=== PATIENT | male | born 1945 | race Caucasian/White ===

== ENCOUNTER 2017-08-31 20:12 | Emergency (ER) | payer OTHER ==
[~2017-08-31] VITALS: Ht 170.2 cm; Wt 98.9 kg
--- NOTE | 2017-08-31 20:20 | NUR ---
BIB FAMILY, C/O CHEST PAIN, NAD NOTED, VSS, RESP EVEN AND UNLABORED, PT WAS PUT ON MONITOR, WAITING FOR MD WIGGINS.
[2017-08-31] MEDS ORDERED: ASPIRIN 81 MG TAB.CHEW ONE (20:46)
[2017-08-31] MEDS ORDERED: DILTIAZEM HCL 25 MG IV ONE (20:46)
[2017-08-31] MEDS ORDERED: IV NS 0.9% 500 ML BAG IV ONE (21:00)
[2017-08-31] MEDS ORDERED: ASPIRIN 81 MG TAB.CHEW PO ONE (21:00)
[2017-08-31] MEDS ORDERED: DILTIAZEM HCL 25 MG IV IV ONE (21:00)
[2017-08-31 21:22] LABS: BASOPHILS # (AUTO) 0.1 /CMM (0.0-0.2); BASOPHILS % (AUTO) 0.4 % (0.0-2.0); EOSINOPHILS % (AUTO) 1.9 % (0.0-6.0); HEMATOCRIT 40 % (39-51); HEMOGLOBIN 13.5 g/dL (13.5-17.5); LYMPHOCYTES # (AUTO) 3.1 /CMM (0.8-4.8); MEAN CORPUSCULAR HGB CONC 34 g/dl (31.0-36.0); MEAN CORPUSCULAR VOLUME 87 fL (80-96); MONOCYTES # (AUTO) 0.9 /CMM (0.1-1.30); MONOCYTES % (AUTO) 6.2 % (2.0-12.0); NEUTROPHILS # (AUTO) 9.7 /CMM (1.8-8.9); NEUTROPHILS % (AUTO) 69.5 % (43.0-81.0); PLATELET COUNT (AUTO) 241 /CMM (150-450); RDW COEFFICIENT OF VARIATION 15.3 (11.5-15.0); RED BLOOD CELL COUNT(AUTO) 4.63 MIL/uL (4.5-6.0); WHITE BLOOD COUNT (AUTO) 13.9 K/uL (4.3-11.0)
[2017-08-31 21:44] LABS: ALBUMIN 3.3 g/dL (3.4-5.0); BILIRUBIN,DIRECT 0.1 mg/dL (0.0-0.2); BILIRUBIN,TOTAL 0.5 mg/dL (0.2-1.0); CALCIUM, SERUM 9.1 mg/dL (8.5-10.1); CREATININE 1.4 mg/dL (0.6-1.3); POTASSIUM 4.5 mmol/L (3.5-5.1)
[2017-08-31 21:48] LABS: TROPONIN I 0.017 ng/mL (0.00-0.056)
[2017-08-31 21:58] LABS: INR 0.86 (0.87-1.13)
[2017-08-31 22:50] VITALS: BP 149/87
--- NOTE | 2017-08-31 22:52 | NUR ---
Patient does not wish to proceed with medical care recommended by Dr. Fontana. Patient given information related to possible complications, up to and including , which could occur as a result of leaving the hospital at this time. Patient verbalizes understanding of risks involved due to leaving against medical advice. Patient has signed AMA form.
== END 2017-08-31 22:53 | disposition left against medical advice (07) ==
LOC: ER 20:14 → TELE1 22:12 → UNDOADMIN 22:12 → ER 22:53
DX: I48.91 Unspecified atrial fibrillation (principal); I10 Essential (primary) hypertension; E11.9 Type 2 diabetes mellitus without complications
CPT/HCPCS: 36415; 71045-TC; 80048-TC; 80076-TC; 84484-TC; 85025-TC; 85730-TC; A4606; J3490; J7040; Z7610